=== PATIENT | female | born 1990 | race Caucasian/White ===

== ENCOUNTER → 2020-01-28 15:22 | Outpatient (CLI) | payer BC, SELFPAY ==
--- NOTE | ~2020-01-28 | US_ITS ---
EXAMINATION: US pelvic complete DATE: 01/28/2020 15:41 INDICATION: Excessive and frequent menstruation Comparison:No prior studies for comparison. TECHNIQUE: Multiple transabdominal sonographic images of the pelvis performed. FINDINGS: The uterus measures 9.8 x 5 x 5.3 cm. The endometrial complex measures 4 mm. The right ovary measures 3.4 x 1.9 x 2.2 cm and the left ovary measures 1.9 x 1.2 x 2 cm. There are small follicles in each ovary. There is no free fluid in the pelvis. There are no abnormal masses seen on either side. IMPRESSION: 1. Normal pelvic ultrasound. Reviewed, dictated and finalized at location A.
== END ==
PROVIDERS: PCP Family Medicine; Visit Provider Physician Assistant
DX: N92.0 Excessive and frequent menstruation with regular cycle (principal)
CPT/HCPCS: 76856